=== PATIENT | female | born 1930 | race Caucasian/White ===

== ENCOUNTER 2016-09-29 12:42 | Inpatient (IN) | payer OTHER, MEDICAID ==
--- NOTE | 2016-09-29 12:52 | DR.GENAD ---
HPI - PCP Primary Care Physician: DR Светлана HERNANDEZ - HPI Comment HPI Comment: HISTORY HYPERTENSION. MEDICATION CHANGE RECENTLY. BP RUNNING HIGH. LEFT RIB PAIN. NO TRAUMA. WORSE TODAY. BRONCHITIS 9 DAYS AGO. STILL NOT RESOLVE. COUGHING, SLIGHTLY PRODUCTIVE. - Complaint/Symptoms Chief Complaint Doctors Comments: LEFT RIB PAIN, SOB AND HTN. Chief Complaint:: PT STATES " MY BP MEDS HAVE BEEN CHANGED AND I WANT TO SEE HOW IT IS, AND I WAS DX WITH BRONCHITIS AND I WANT TO SEE IF ITS BETTER AND I AM HURTING IN MY LEFT RIBS". - Nurses notes reviewed Nurses Notes Review: Yes - Source History Provided: Patient, Family Member - Mode of Arrival Mode of Arrival: Ambulatory - Timing Onset of Chief Complaint: 09/20/16 Came on: Suddenly - Duration Duration: Constant Duration: Days - Severity Severity: Moderate PMH - PMH Past Medical History: Yes Past Medical History: Dyslipidemia, GERD, Gout, Hypertension Past Surgical History: Yes Surgical History: Ortho Surgery - Family History History of Family Medical Conditions: Yes Family Medical History: Coronary Artery Disease, Hypertension - Social History Does patient currently use any type of tobacco product: No Have you used tobacco products in the last 12 months: No Type of Tobacco Use: None Does any household member use tobacco: No Alcohol Use: None Do you use any recreational Drugs:: No Lives With: Spouse Lives Where: Home - infectious screening In the last 2 months have you had wt loss of >10#?: NO Have you had fever, night sweats or hemotysis?: No Have you traveled outside the country in the last 6 months?: No Isolation: Standard ROS - Review of Systems Constitutional: Weakness, Fatigue. negative: Chills, Fever Eyes: No Symptoms Reported. negative: Eye Pain, Discharge ENTM: No Symptoms Reported. negative: Ear Pain, Nose Congestion, Throat Pain Respiratoy: Productive Cough, Short of Breath, Wheezing. negative: Hemoptysis Cardiovascular: Chest Pain (LEFT RIB PAIN) Gastrointestinal/Abdominal: Nausea. negative: Abdominal Pain, Diarrhea, Vomiting Genitourinary: negative: Hematuria Neurological: Headache, Weakness, Dizziness Musculoskeletal: Muscle Pain Integumentary: No Symptoms Reported Hematologic/Lymphatic: Easy Bruising Endocrine: No Symptoms Reported All Other Systems: Reviewed and Negative PE - Vital Signs Vitals: Temperature 97.0 F Pulse Rate [Left Radial] 75 Pulse Rate 83 Respiratory Rate 16 Blood Pressure [Right Arm] 182/82 Blood Pressure 174/79 O2 Sat by Pulse Oximetry 98 - General Limitations: No Limitations General Appearance: Alert - Head Head Exam: Normal Inspection - Eyes Eye exam: Normal Appearance - ENT ENT Exam: Normal External Ear Exam External Ear Exam: Normal External Inspection TM/Canal Exam: Bilateral Normal Nose Exam: Normal Nose Exam Mouth Exam: Normal Inspection Throat Exam: Normal Inspection - Neck Neck Exam: Trachea Midline. negative: Tenderness, Meningismus, Lymphadenopathy - Chest Chest Inspection: Symmetric Chest Wall Rise - Respiratory Respiratory Exam: Respiratory Distress. negative: Chest Wall Tenderness Respiratory Exam: Bilateral Rhonchi, Lower Rhonchi - Cardiovascular Cardiovascular Exam: Regular Rate, Normal Rhythm, Normal Heart Sounds - Abdominal Exam Abdominal Exam: Normal Bowel Sounds, Soft, Tenderness - Extremities Extremities Exam: Normal Inspection - Back Back Exam: Normal Inspection - Neurologic Neurological Exam: Alert, Oriented X3 - Psychiatric Psychiatric Exam: Normal Affect, Normal Mood - Skin Skin Exam: Normal Color MDM - Differential Diagnosis Differential Diagnosis: UNCONTROL HTN, CHF, COPD EXACERBATION,CHEST PAIN, BRONCHITIS Course - Treatment Treatment: SEE ORDERS - Consultation Consultation Comments: DISCUSS PATIENT WITH DR. HERNANDEZ. HE WILL ADMIT PATIENT. - Education/Counseling Education/Counseling: Patient, Education Educated On: Diagnosis ROR - Labs Reviewed Laboratory Results Reviewed?: Yes Result Diagrams: 10/02/16 04:15 10/02/16 04:15 Laboratory: WBC 7.9 X10^3/uL (3.6-10.0) 10/02/16 04:15 RBC 3.12 X10^6/uL (3.5-5.4) L 10/02/16 04:15 Hgb 10.4 g/dL (12.0-16.0) L 10/02/16 04:15 Hct 30.5 % (36.0-47.0) L 10/02/16 04:15 MCV 97.8 fL (80.0-100.0) 10/02/16 04:15 MCH 33.4 pg (27.0-34.0) 10/02/16 04:15 MCHC 34.2 g/dL (33.0-35.0) 10/02/16 04:15 RDW 14.0 % (11.6-16.5) 10/02/16 04:15 Plt Count 195 X10^3/uL (150.0-450.0) 10/02/16 04:15 MPV 8.1 fL (7.4-11.0) 10/02/16 04:15 Neut % 66.0 % (42.0-75.0) 10/02/16 04:15 Lymph % 21.7 % (21.0-51.0) 10/02/16 04:15 Walker % 10.2 % (0.0-13.0) 10/02/16 04:15 Eos % 1.5 % (0.9-2.9) 10/02/16 04:15 Baso % 0.6 % (0.2-1.0) 10/02/16 04:15 Neut # 5.2 x10^3/uL (2.2-4.8) H 10/02/16 04:15 Lymph # 1.7 X10^3/uL (1.3-2.9) 10/02/16 04:15 Walker # 0.8 x10^3/uL (0.3-0.8) 10/02/16 04:15 Eos # 0.1 x10^3/uL (0.0-0.2) 10/02/16 04:15 Baso # 0.0 X10^3/uL (0.0-0.1) 10/02/16 04:15 Absolute Nucleated RBC 0.0 /100WBC 10/02/16 04:15 Sodium 136 mmol/L (136-145) 10/02/16 04:15 Corrected Sodium TNP 10/02/16 04:15 Potassium 4.5 mmol/L (3.5-5.1) 10/02/16 04:15 Chloride 104 mmol/L (98-107) 10/02/16 04:15 Carbon Dioxide 23.9 mmol/L (21-32) 10/02/16 04:15 BUN 21 mg/dL (7-18) H 10/02/16 04:15 Creatinine 0.73 mg/dL (0.55-1.02) 10/02/16 04:15 Est GFR (MDRD) Af Amer > 60 (>60) 10/02/16 04:15 Est GFR (MDRD) Non-Af > 60 (>60) 10/02/16 04:15 Glucose 96 mg/dL (65-99) 10/02/16 04:15 Calcium 8.2 mg/dL (8.5-10.1) L 10/02/16 04:15 Corrected Calcium 9.4 mg/dL (8.5-10.1) 10/02/16 04:15 Total Bilirubin 0.30 mg/dL (0.2-1.0) 10/02/16 04:15 AST 12 Units/L (15-37) L 10/02/16 04:15 ALT 20 Units/L (12-78) 10/02/16 04:15 Alkaline Phosphatase 48 Units/L (46-116) 10/02/16 04:15 Creatine Kinase 18 Units/L (26-192) L 09/30/16 01:45 CK-MB (CK-2) < 1.0 ng/mL (0-4.0) 09/30/16 01:45 CK/CKMB % Calc 5.6 % (<4) 09/30/16 01:45 Troponin I 0.02 ng/mL (0-1.5) 09/30/16 01:45 Total Protein 4.9 g/dL (6.4-8.2) L 10/02/16 04:15 Albumin 2.5 g/dL (3.4-5.0) L 10/02/16 04:15 Globulin 2.4 g/dL (2.5-4.5) L 10/02/16 04:15 Albumin/Globulin Ratio 1.0 Ratio (1.1-2.1) L 10/02/16 04:15 Specimen Type Clean catch urine 09/29/16 14:33 Urine Color Yellow (YELLOW) 09/29/16 14:33 Urine Appearance Clear (CLEAR) 09/29/16 14:33 Urine pH 6.5 (5.0 - 8.0) 09/29/16 14:33 Ur Specific [place] 1.010 (1.000-1.030) 09/29/16 14:33 Urine Protein Negative (NEGATIVE) 09/29/16 14:33 Urine Glucose (UA) Negative (NEGATIVE) 09/29/16 14:33 Urine Ketones Negative (NEGATIVE) 09/29/16 14:33 Urine Occult Blood Negative (NEGATIVE) 09/29/16 14:33 Urine Nitrite Negative (NEGATIVE) 09/29/16 14:33 Urine Bilirubin Negative (NEGATIVE) 09/29/16 14:33 Urine Urobilinogen Normal (NORMAL) 09/29/16 14:33 Ur Leukocyte Esterase 1+ (NEGATIVE) 09/29/16 14:33 Urine RBC 0-1 /HPF (NEGATIVE) 09/29/16 14:33 Urine WBC 0-2 /HPF (NEGATIVE) 09/29/16 14:33 Ur Squamous Epith Cells Moderate /HPF (NEGATIVE) 09/29/16 14:33 Urine Bacteria Trace /HPF (NEGATIVE) 09/29/16 14:33 Ur Culture Indicated? No/not indicated 09/29/16 14:33 - XRAY XRAY Interpreted by: Radiologist XRAY Findings: REPORT DISCUSS WITH PATIENT. - EKG Rhythm: NSR (EKG NOTED.) - Diagnosis Discharge Problem: Hyponatremia, Hypertension, uncontrolled, Bronchitis Chest pain Qualifiers: Chest pain type: intercostal pain Qualified Code(s): R07.82 - Intercostal pain - Discharge Plan Disposition: ADMITTED INPATIENT Condition: Stable - Follow ups/Referrals - Instructions
[2016-09-29 13:37] LABS: BASOPHILS # (AUTO) 0.1 X10^3/uL (0.0-0.1); BASOPHILS % (AUTO) 0.6 % (0.2-1.0); EOSINOPHILS # (AUTO) 0.1 x10^3/uL (0.0-0.2); EOSINOPHILS % (AUTO) 0.6 % (0.9-2.9); HEMATOCRIT 38.7 % (36.0-47.0); HEMOGLOBIN 13.4 g/dL (12.0-16.0); LYMPHOCYTES % (AUTO) 15.4 % (21.0-51.0); MEAN CORPUSCULAR HEMOGLOBIN 32.9 pg (27.0-34.0); MEAN CORPUSCULAR HGB CONC 34.6 g/dL (33.0-35.0); MEAN PLATELET VOLUME 7.6 fL (7.4-11.0); MONOCYTES # (AUTO) 1.2 x10^3/uL (0.3-0.8); MONOCYTES % (AUTO) 9.5 % (0.0-13.0); NEUTROPHILS # (AUTO) 9.6 x10^3/uL (2.2-4.8); NEUTROPHILS % (AUTO) 73.9 % (42.0-75.0); PLATELET COUNT 303 X10^3/uL (150.0-450.0); RED BLOOD COUNT 4.07 X10^6/uL (3.5-5.4); RED CELL DISTRIBUTION WIDTH 13.5 % (11.6-16.5); WHITE BLOOD COUNT 12.9 X10^3/uL (3.6-10.0)
--- NOTE | 2016-09-29 13:45 | RAD ---
Chest, one view Indication: Chest pain, hypertension Comparison: 10/31/2009 Findings: Patient is slightly rotated to the left. There is mild cardiac silhouette enlargement. The re are mild interstitial changes of the lungs with hyperinflation, suggesting COPD. There is bluntin g of the left costophrenic angle. Rounded retrocardiac lucency is suggestive for a moderate hiatal h ernia, similar to prior. Impression: Cardiomegaly without evidence for CHF Left costophrenic sulcus blunting, suggesting pleural thickening or small effusion. Changes suggesting COPD. Hiatal hernia Reported By:
[2016-09-29 13:58] LABS: ALANINE AMINOTRANSFERASE 22 Units/L (12-78); ALBUMIN 3.3 g/dL (3.4-5.0); ALKALINE PHOSPHATASE 66 Units/L (46-116); ASPARTATE AMINO TRANSFERASE 18 Units/L (15-37); BLOOD UREA NITROGEN 27 mg/dL (7-18); CALCIUM 8.8 mg/dL (8.5-10.1); CARBON DIOXIDE 28.3 mmol/L (21-32); CHLORIDE 85 mmol/L (98-107); CKMB % 3.9 % (<4); COR CA(FOR HYPOALB) 9.4 mg/dL (8.5-10.1); COR NA(FOR HYPERGLY) 122 mmol/L (136-145); CREATINE KINASE 26 Units/L (26-192); CREATINE KINASE MB < 1.0 ng/mL (0-4.0); CREATININE 0.99 mg/dL (0.55-1.02); GLUCOSE 158 mg/dL (65-99); TROPONIN I < 0.02 ng/mL (0-1.5); eGFR BLACK RACES > 60 (>60); eGFR NON BLACK RACES 56 (>60)
[2016-09-29 14:08] LABS: SODIUM 121 mmol/L (136-145)
[2016-09-29] MEDS: NS 1000 ML 1,000 ML IV SCH (14:30)
[2016-09-29 14:52] LABS: BILIRUBIN,URINE NEGATIVE (NEGATIVE); BLOOD/HEMOGLOBIN,URINE NEGATIVE (NEGATIVE); GLUCOSE, URINE NEGATIVE (NEGATIVE); KETONES,URINE NEGATIVE (NEGATIVE); LEUKOCYTE ESTERASE ,URINE 1+ (NEGATIVE); NITRITES,URINE NEGATIVE (NEGATIVE); PH,URINE 6.5 (5.0 - 8.0); PROTEIN,URINE NEGATIVE (NEGATIVE); UROBILINOGEN,URINE NORMAL (NORMAL)
[2016-09-29 15:00] LABS: APPEARANCE,URINE CLEAR (CLEAR); BACTERIA,URINE TRACE /HPF (NEGATIVE); COLOR,URINE YELLOW (YELLOW); RBC,URINE 0-1 /HPF (NEGATIVE); SQUAMOUS EPITHELIAL CELL,UR MODERATE /HPF (NEGATIVE)
[2016-09-29 18:46] VITALS: BMI 21.5
[2016-09-29 20:47] LABS: CKMB % 3.5 % (<4); CREATINE KINASE 29 Units/L (26-192); TROPONIN I < 0.02 ng/mL (0-1.5)
[2016-09-29] MEDS ORDERED: TIMOLOL OP SCH (21:00)
[2016-09-29] MEDS: RESTORIL CAP 15 MG PO PRN (21:26)
[2016-09-29] MEDS: ULTRAM PO SCH (21:26)
[2016-09-29] MEDS: LIPITOR TAB 10 MG PO SCH (21:27)
[2016-09-29] MEDS: ZANTAC PO SCH (21:27)
[2016-09-29] MEDS: LOPRESSOR TAB 25 MG PO SCH (21:27)
[2016-09-29] MEDS: ZYLOPRIM PO SCH (21:27)
[2016-09-29] MEDS: PriLOSEC PO SCH (21:27)
[2016-09-29] MEDS: TIMOPTIC 0.5% EYE DROPS EACHEYE SCH (21:54)
[2016-09-30 02:26] LABS: CKMB % 5.6 % (<4); CREATINE KINASE 18 Units/L (26-192); CREATINE KINASE MB < 1.0 ng/mL (0-4.0); TROPONIN I 0.02 ng/mL (0-1.5)
[2016-09-30] MEDS: NS 1000 ML 1,000 ML IV SCH ×4 (05:36→23:52)
[2016-09-30] MEDS: ULTRAM PO SCH ×3 (05:36→21:39)
[2016-09-30 06:10] LABS: ALANINE AMINOTRANSFERASE 18 Units/L (12-78); ALBUMIN 2.4 g/dL (3.4-5.0); ALKALINE PHOSPHATASE 54 Units/L (46-116); ASPARTATE AMINO TRANSFERASE 14 Units/L (15-37); BLOOD UREA NITROGEN 23 mg/dL (7-18); CALCIUM 8.1 mg/dL (8.5-10.1); CARBON DIOXIDE 27.2 mmol/L (21-32); CHLORIDE 91 mmol/L (98-107); COR CA(FOR HYPOALB) 9.4 mg/dL (8.5-10.1); CREATININE 0.85 mg/dL (0.55-1.02); GLUCOSE 90 mg/dL (65-99); SODIUM 127 mmol/L (136-145); TOTAL PROTEIN 5.3 g/dL (6.4-8.2); eGFR BLACK RACES > 60 (>60); eGFR NON BLACK RACES > 60 (>60)
[2016-09-30 06:26] LABS: BASOPHILS % (AUTO) 0.3 % (0.2-1.0); EOSINOPHILS # (AUTO) 0.1 x10^3/uL (0.0-0.2); EOSINOPHILS % (AUTO) 1.1 % (0.9-2.9); HEMATOCRIT 32.7 % (36.0-47.0); HEMOGLOBIN 11.5 g/dL (12.0-16.0); LYMPHOCYTES # (AUTO) 2.2 X10^3/uL (1.3-2.9); LYMPHOCYTES % (AUTO) 22.8 % (21.0-51.0); MEAN CORPUSCULAR HEMOGLOBIN 33.6 pg (27.0-34.0); MEAN CORPUSCULAR HGB CONC 35.2 g/dL (33.0-35.0); MEAN CORPUSCULAR VOLUME 95.4 fL (80.0-100.0); MEAN PLATELET VOLUME 7.9 fL (7.4-11.0); MONOCYTES # (AUTO) 1.3 x10^3/uL (0.3-0.8); MONOCYTES % (AUTO) 13.3 % (0.0-13.0); NEUTROPHILS % (AUTO) 62.5 % (42.0-75.0); PLATELET COUNT 224 X10^3/uL (150.0-450.0); RED BLOOD COUNT 3.43 X10^6/uL (3.5-5.4); RED CELL DISTRIBUTION WIDTH 13.2 % (11.6-16.5); WHITE BLOOD COUNT 9.6 X10^3/uL (3.6-10.0)
[2016-09-30] MEDS ORDERED: ZESTRIL TAB 20 MG ONE (08:29)
[2016-09-30] MEDS ORDERED: LEXAPRO ONE (08:29)
[2016-09-30] MEDS ORDERED: LASIX PO SCH (09:00)
[2016-09-30] MEDS ORDERED: HYDROCHLOROTHIAZIDE 12.5 MG CAP PO SCH (09:00)
[2016-09-30] MEDS: ZESTRIL TAB 20 MG PO SCH (09:26)
[2016-09-30] MEDS: LEXAPRO PO SCH (09:26)
[2016-09-30] MEDS: ZANTAC PO SCH ×2 (09:27→21:39)
[2016-09-30] MEDS: LOPRESSOR TAB 25 MG PO SCH ×2 (09:27→21:39)
[2016-09-30] MEDS: ZYLOPRIM PO SCH ×2 (09:27→21:39)
[2016-09-30] MEDS: K-DUR TAB 20 MEQ PO SCH (09:27)
[2016-09-30] MEDS: ASPIRIN EC 81 MG PO SCH (09:27)
[2016-09-30] MEDS: TIMOPTIC 0.5% EYE DROPS EACHEYE SCH ×2 (09:30→21:42)
--- NOTE | 2016-09-30 11:27 | PCM.PROG ---
Progress Note - Progress Note for Day of Date: 09/30/16 - Subjective Subjective: PATIENT IS LYING IN BED AWAKE DURING MORNING ROUNDS. SHE IS ALERT AND ORIENTED. SON IS AT BEDSIDE. PATIENT REPORTS WEAKNESS THIS MORNING AND FEELING TIRED. PATIENT'S BLOOD PRESSURE AT MIDNIGHT WAS 81/47, BUT IS 116/58 THIS MORNING. PULSE IS 63. CBC IS WNL EXCEPT HGB 11.5/32.7, CMP WNL EXCEPT NA 127, CHLORIDE 91, BUN 23, TOTAL PROTEIN 5.3, ALBUMIN 2.5. CARDIAC ENZYMES REPORTS CREATINE KINASE 18, OTHERWISE WNL. EKG SHOWS NSR. WE WILL HOLD HCTZ AND LASIX AND CONTINUE OTHER HOME MEDICATIONS. - Past Medical Family Social History Past Med/Fam/Surg Hx: No changes since H&P Allergies: Allergies Codeine Allergy (Unknown, Verified 09/29/16 12:43) Promethazine [From Phenergan] Allergy (Unknown, Verified 09/29/16 12:43) - Review of Systems ROS: No change since H&P - Vital Signs and I&O's Vital Signs: Temperature 97.5 F Pulse Rate [Right Brachial] 63 Respiratory Rate 18 Blood Pressure [Left Arm] 116/58 Blood Pressure [Right Arm] 178/77 O2 Sat by Pulse Oximetry 98 Intake and Output: Intake & Output 09/27/16 09/28/16 09/29/16 09/30/16 11:59 11:59 11:59 11:59 Intake Total 899 Balance 899 - Physical Exam Oriented: Normal, Time, Person, Place Eyes: Normal. negative: Blurred Vision, Diplopia, Discharge, Pain, Redness, Photophobia Ear: Normal. negative: Swelling, Ecchymosis, Hemotypanum, Abrasion, Laceration Nose: Normal. negative: Injected, Discharge, Blood Throat: negative: Tonsillar Hypertrophy, Red, Exudate Respiratory: Normal. negative: Wheezes, Rales, Rhonchi Cardiovascular: Normal. negative: Murmur, Edema : Normal Auscultation: Bowel Sounds: Normal. negative: Bruit Palpation: Normal. negative: Spleen Enlarged, Liver Enlarged, Mass Pulsatile Tenderness: Normal. negative: Rebound, Guarding, Rigidity Skin: Decreased Turgur. negative: Diaphoresis, Wound, Bruising, Ecchymosis Musculoskeletal: Instability Psychiatric: Normal Mood Description: Calm Affect: Normal Speech Pattern: Clear, Appropriate - Laboratory and Diagnostics Result Diagrams: 09/30/16 04:05 09/30/16 04:05 Labs: Laboratory WBC 9.6 X10^3/uL (3.6-10.0) 09/30/16 04:05 RBC 3.43 X10^6/uL (3.5-5.4) L 09/30/16 04:05 Hgb 11.5 g/dL (12.0-16.0) L 09/30/16 04:05 Hct 32.7 % (36.0-47.0) L 09/30/16 04:05 MCV 95.4 fL (80.0-100.0) 09/30/16 04:05 MCH 33.6 pg (27.0-34.0) 09/30/16 04:05 MCHC 35.2 g/dL (33.0-35.0) H 09/30/16 04:05 RDW 13.2 % (11.6-16.5) 09/30/16 04:05 Plt Count 224 X10^3/uL (150.0-450.0) 09/30/16 04:05 MPV 7.9 fL (7.4-11.0) 09/30/16 04:05 Neut % 62.5 % (42.0-75.0) 09/30/16 04:05 Lymph % 22.8 % (21.0-51.0) 09/30/16 04:05 [place] % 13.3 % (0.0-13.0) H 09/30/16 04:05 Eos % 1.1 % (0.9-2.9) 09/30/16 04:05 Baso % 0.3 % (0.2-1.0) 09/30/16 04:05 Neut # 6.0 x10^3/uL (2.2-4.8) H 09/30/16 04:05 Lymph # 2.2 X10^3/uL (1.3-2.9) 09/30/16 04:05 [place] # 1.3 x10^3/uL (0.3-0.8) H 09/30/16 04:05 Eos # 0.1 x10^3/uL (0.0-0.2) 09/30/16 04:05 Baso # 0.0 X10^3/uL (0.0-0.1) 09/30/16 04:05 Absolute Nucleated RBC 0.0 /100WBC 09/30/16 04:05 Sodium 127 mmol/L (136-145) L 09/30/16 04:05 Corrected Sodium TNP 09/30/16 04:05 Potassium 3.7 mmol/L (3.5-5.1) 09/30/16 04:05 Chloride 91 mmol/L (98-107) L 09/30/16 04:05 Carbon Dioxide 27.2 mmol/L (21-32) 09/30/16 04:05 BUN 23 mg/dL (7-18) H 09/30/16 04:05 Creatinine 0.85 mg/dL (0.55-1.02) 09/30/16 04:05 Est GFR (MDRD) Af Amer > 60 (>60) 09/30/16 04:05 Est GFR (MDRD) Non-Af > 60 (>60) 09/30/16 04:05 Glucose 90 mg/dL (65-99) 09/30/16 04:05 Calcium 8.1 mg/dL (8.5-10.1) L 09/30/16 04:05 Corrected Calcium 9.4 mg/dL (8.5-10.1) 09/30/16 04:05 Total Bilirubin 0.60 mg/dL (0.2-1.0) 09/30/16 04:05 AST 14 Units/L (15-37) L 09/30/16 04:05 ALT 18 Units/L (12-78) 09/30/16 04:05 Alkaline Phosphatase 54 Units/L (46-116) 09/30/16 04:05 Creatine Kinase 18 Units/L (26-192) L 09/30/16 01:45 CK-MB (CK-2) < 1.0 ng/mL (0-4.0) 09/30/16 01:45 CK/CKMB % Calc 5.6 % (<4) 09/30/16 01:45 Troponin I 0.02 ng/mL (0-1.5) 09/30/16 01:45 Total Protein 5.3 g/dL (6.4-8.2) L 09/30/16 04:05 Albumin 2.4 g/dL (3.4-5.0) L 09/30/16 04:05 Globulin 2.9 g/dL (2.5-4.5) 09/30/16 04:05 Albumin/Globulin Ratio 0.8 Ratio (1.1-2.1) L 09/30/16 04:05 Specimen Type Clean catch urine 09/29/16 14:33 Urine Color Yellow (YELLOW) 09/29/16 14:33 Urine Appearance Clear (CLEAR) 09/29/16 14:33 Urine pH 6.5 (5.0 - 8.0) 09/29/16 14:33 Ur Specific [place] 1.010 (1.000-1.030) 09/29/16 14:33 Urine Protein Negative (NEGATIVE) 09/29/16 14:33 Urine Glucose (UA) Negative (NEGATIVE) 09/29/16 14:33 Urine Ketones Negative (NEGATIVE) 09/29/16 14:33 Urine Occult Blood Negative (NEGATIVE) 09/29/16 14:33 Urine Nitrite Negative (NEGATIVE) 09/29/16 14:33 Urine Bilirubin Negative (NEGATIVE) 09/29/16 14:33 Urine Urobilinogen Normal (NORMAL) 09/29/16 14:33 Ur Leukocyte Esterase 1+ (NEGATIVE) 09/29/16 14:33 Urine RBC 0-1 /HPF (NEGATIVE) 09/29/16 14:33 Urine WBC 0-2 /HPF (NEGATIVE) 09/29/16 14:33 Ur Squamous Epith Cells Moderate /HPF (NEGATIVE) 09/29/16 14:33 Urine Bacteria Trace /HPF (NEGATIVE) 09/29/16 14:33 Ur Culture Indicated? No/not indicated 09/29/16 14:33 - Plan (1) Hyponatremia Status: Acute Plan: CONTINUE IVF, CONTINUE TO MONITOR LABS (2) Hypertension, uncontrolled Status: Acute Plan: CONTINUE IVF, CONTINUE LISINOPRIL AND LOPRESSOR, MONITOR BLOOD PRESSURE, CONTINUE TO MONITOR LABS (3) HTN (hypertension) Status: Chronic Qualifiers: Hypertension type: essential hypertension Qualified Code(s): I10 - Essential (primary) hypertension (4) Hyperlipidemia Status: Chronic Qualifiers: Hyperlipidemia type: mixed hyperlipidemia Qualified Code(s): E78.2 - Mixed hyperlipidemia (5) GERD (gastroesophageal reflux disease) Status: Chronic Qualifiers: Esophagitis presence: esophagitis presence not specified Qualified Code(s) : K21.9 - Gastro-esophageal reflux disease without esophagitis (6) Osteoporosis Status: Chronic Qualifiers: Osteoporosis type: age-related Presence of current pathological fracture: without current pathological fracture Encounter type: E Fracture healing: F Qualified Code(s): M81.0 - Age-related osteoporosis without current pathological fracture (7) Anxiety and depression Status: Chronic
--- NOTE | 2016-09-30 14:58 | DR.H&P ---
H&P - History & Physical for Day of: H&P Date: 09/29/16 - Chief Complaint Chief Complaint: ELEVATED BLOOD PRESSURE, GENERALIZED WEAKNESS, HEADACHE - Allergies Allergies/Adverse Reactions: Allergies Allergy/AdvReac Type Severity Reaction Status Date / Time Codeine Allergy Unknown Verified 09/29/16 12:43 Promethazine [From Phenergan] Allergy Unknown Verified 09/29/16 12:43 - History of Present Illness History of Present Illness: THIS IS AN 86 YEAR OLD FEMALE, WHO IS A PATIENT OF OURS. SHE PRESENTS TO THE EMERGENCY ROOM WITH COMPLAINTS OF ELEVATED BLOOD PRESSURE, GENERALIZED WEAKNESS, AND HEADACHE. SHE REPORTS BLOOD PRESSURE MEDICATIONS HAVE RECENTLY BEEN CHANGED AT OUR OFFICE. SHE WAS NOTED WITH HYPERTENSION IN OUR OFFICE AND WAS STARTED ON HCTZ IN ADDITION TO LISINOPRIL AND LOPRESSOR. PATIENT HAS ALSO RECENTLY BEEN TREATED FOR BRONCHITIS IN OUR OFFICE. ON AUSCULTATION, LUNGS ARE DIMINISHED, BUT CLEAR. SHE REPORTS GENERALIZED FATIGUE AND MALAISE. BLOOD PRESSURE IS 182/82 ON ARRIVAL, PULSE 75. LABS AND CHEST XRAY OBTAINED ON ARRIVAL. CBC WNL EXCEPT: WBC 12.9. CMP WNL EXCEPT: SODIUM 121, CHL 85, BUN 27, GFR 56, GLUCOSE 158, ALBUMIN 3.3. CARDIAC ENZYMES WNL. EKG: SINUS RHYTHM, RATE 74. CHEST XRAY REPORTS CARDIOMEGALY WITHOUT CHF; LEFT COTOPHRENIC SULCUS BLUNTING; COPD; HIATAL HERNIA. WE WILL ADMIT PATIENT FOR HYPONATREMIA, START IV FLUIDS, START HOME MEDICATIONS, AND CONTINUE TO MONITOR LABS AND VITAL SIGNS. - Past Medical History Past Medical History: Anxiety, Arthritis, Depression, Dyslipidemia, GERD, Gout, Hypertension Additional Medical History: Bacterial Infection Right Eye, Bronchitis, Osteoporosis, Back Pain, Skin Cancer on Face/Melanoma - Past Surgical History Surgical History: Ortho Surgery Additional Surgical History: Removal Of Skin Cancer, Fracture of Right Arm Twice - Family History Family Medical History: Coronary Artery Disease, Hypertension - Social History Does patient currently use any type of tobacco product: No Have you used tobacco products in the last 12 months: No Type of Tobacco Use: None Does any household member use tobacco: No Alcohol Use: None Drug Use: None - Medications Home Medications: Alendronate Sodium [Fosamax 70 mg] 70 mg PO Q7D 09/02/12 Allopurinol 100 mg PO BID 09/02/12 Atorvastatin Calcium [LIPITOR Tab 10 mg *] 10 mg PO HS 09/02/12 Calcium W/ Vitamins D & K [Calcium + D 500-1000-40 mg-Unt-Mcg] 2 tab PO DAILY 09/02/12 Furosemide [LASIX TAB 40 MG *] 40 mg PO DAILY 09/02/12 Iron Combinations [Iron] 65 mg PO DAILY 09/02/12 Potassium Chloride Microencaps [Klor-Con M20 (20 mEQ)] 20 meq PO DAILY Ranitidine HCl 150 mg PO BID 09/02/12 Timolol [Betimol (ophtl) soln 0.5 %] 0.5 % OP BID 09/02/12 Metoprolol Tartrate [LOPRESSOR 25 MG *] 25 mg PO BID 03/27/14 Aspirin [Aspirin Adult Low Dose] 81 mg PO DAILY 09/29/16 Escitalopram Oxalate [Lexapro 5 mg] 5 mg PO DAILY 09/29/16 Lisinopril & Hydrochlorothiazi [Lisinopril/Hydrochlorothi 20-12.5 mg] 1 tab PO DAILY 09/29/16 Omeprazole [PRILOSEC 20 MG *] 20 mg PO HS 09/29/16 Tramadol HCl [ULTRAM 50 MG *] 1 tab PO TID 09/29/16 - Review of Systems Constitutional: Weakness, Malaise, Other (Headache). denies: Fever Eyes: No Symptoms Reported. denies: Pain, Vision Change, Conjunctivae Inflammation, Eyelid Inflammation, Redness ENT: No Symptoms Reported. denies: Ear Pain, Ear Discharge, Nose Pain, Nose Discharge, Nose Congestion, Mouth Pain, Mouth Swelling, Throat Pain, Throat Swelling Respiratory: No Symptoms Reported. denies: Cough, Shortness of Breath, Hemoptysis, SOB with Excertion, Pleuritic Pain, Sputum, Wheezing Cardiovascular: Light Headedness. denies: Chest Pain, Palpitations, Orthopnea, Paroxysmal Noc. Dyspnea Gastrointestinal: Nausea. denies: Vomiting, Abdominal Pain, Diarrhea, Constipation, Melena, Hematochezia Genitourinary: No Symptoms Reported. denies: Dysuria, Frequency, Incontinence, Hematuria, Retention Musculoskeletal: No Symptoms Reported. denies: Shoulder Pain, Arm Pain, Back Pain, Hand Pain, Leg Pain, Foot Pain, Neck Pain Skin: No Symptoms Reported. denies: Rash, Lesions, Jaundice, Bruising, Wound, Ecchymosis Neurological: Weakness - Physical Exam Vital Signs: Temperature 96.3 F Pulse Rate [Right Brachial] 66 Respiratory Rate 18 Blood Pressure [Left Arm] 116/58 Blood Pressure [Right Arm] 84/53 O2 Sat by Pulse Oximetry 97 Oriented: Normal, Time, Person, Place Eyes: Normal. negative: Blurred Vision, Diplopia, Discharge, Pain, Redness, Photophobia Ear: Normal. negative: Swelling, Ecchymosis, Hemotypanum, Abrasion, Laceration Nose: Normal. negative: Injected, Discharge, Blood Throat: Dry. negative: Tonsillar Hypertrophy, Exudate Respiratory: Clear Throughout, Diminished Throughout Cardiovascular: Normal. negative: Murmur, Edema : Normal. negative: Dysuria, Hematuria, Frequency, Discharge, Bleeding, Auscultation: Bowel Sounds: Decreased. negative: Bruit Palpation: Normal. negative: Spleen Enlarged, Liver Enlarged, Mass Pulsatile Tenderness: Normal. negative: Rebound, Guarding, Rigidity Skin: Decreased Turgur. negative: Diaphoresis, Wound, Bruising, Ecchymosis Musculoskeletal: Instability Psychiatric: Normal Mood Description: Calm, Appropriate Affect: Normal Speech Pattern: Clear, Appropriate - Assessment/Plan (1) Hyponatremia Status: Acute Plan: ADMIT PATIENT, START IV FLUIDS, CONTINUE TO MONITOR VITAL SIGNS, MONITOR LABS. (2) Hypertension, uncontrolled Status: Acute Plan: START HOME MEDICATIONS, MONITOR BLOOD PRESSURE. (3) HTN (hypertension) Qualifiers: Hypertension type: essential hypertension Qualified Code(s): I10 - Essential (primary) hypertension Status: Chronic (4) Hyperlipidemia Qualifiers: Hyperlipidemia type: mixed hyperlipidemia Qualified Code(s): E78.2 - Mixed hyperlipidemia Status: Chronic (5) GERD (gastroesophageal reflux disease) Qualifiers: Esophagitis presence: esophagitis presence not specified Qualified Code(s) : K21.9 - Gastro-esophageal reflux disease without esophagitis Status: Chronic (6) Osteoporosis Qualifiers: Osteoporosis type: age-related Presence of current pathological fracture: without current pathological fracture Encounter type: E Fracture healing: F Qualified Code(s): M81.0 - Age-related osteoporosis without current pathological fracture Status: Chronic (7) Anxiety and depression Status: Chronic
[2016-09-30] MEDS: PriLOSEC PO SCH (21:39)
[2016-09-30] MEDS: LIPITOR TAB 10 MG PO SCH (21:39)
[2016-09-30] MEDS: RESTORIL CAP 15 MG PO PRN (21:42)
[2016-10-01] MEDS: ULTRAM PO SCH ×3 (06:15→21:49)
[2016-10-01 07:01] LABS: ALANINE AMINOTRANSFERASE 16 Units/L (12-78); ALBUMIN 2.3 g/dL (3.4-5.0); ALKALINE PHOSPHATASE 58 Units/L (46-116); ASPARTATE AMINO TRANSFERASE 13 Units/L (15-37); BLOOD UREA NITROGEN 23 mg/dL (7-18); CALCIUM 8.1 mg/dL (8.5-10.1); CARBON DIOXIDE 27.3 mmol/L (21-32); CHLORIDE 97 mmol/L (98-107); COR CA(FOR HYPOALB) 9.5 mg/dL (8.5-10.1); CREATININE 0.75 mg/dL (0.55-1.02); GLUCOSE 93 mg/dL (65-99); SODIUM 132 mmol/L (136-145); TOTAL PROTEIN 5.2 g/dL (6.4-8.2); eGFR BLACK RACES > 60 (>60); eGFR NON BLACK RACES > 60 (>60)
[2016-10-01 07:02] LABS: BASOPHILS % (AUTO) 0.5 % (0.2-1.0); EOSINOPHILS # (AUTO) 0.1 x10^3/uL (0.0-0.2); EOSINOPHILS % (AUTO) 1.2 % (0.9-2.9); HEMATOCRIT 34.1 % (36.0-47.0); HEMOGLOBIN 11.7 g/dL (12.0-16.0); LYMPHOCYTES # (AUTO) 1.7 X10^3/uL (1.3-2.9); LYMPHOCYTES % (AUTO) 19.1 % (21.0-51.0); MEAN CORPUSCULAR HGB CONC 34.2 g/dL (33.0-35.0); MEAN CORPUSCULAR VOLUME 96.4 fL (80.0-100.0); MONOCYTES # (AUTO) 1.1 x10^3/uL (0.3-0.8); MONOCYTES % (AUTO) 12.9 % (0.0-13.0); NEUTROPHILS # (AUTO) 5.8 x10^3/uL (2.2-4.8); NEUTROPHILS % (AUTO) 66.3 % (42.0-75.0); PLATELET COUNT 228 X10^3/uL (150.0-450.0); RED BLOOD COUNT 3.54 X10^6/uL (3.5-5.4); RED CELL DISTRIBUTION WIDTH 13.6 % (11.6-16.5); WHITE BLOOD COUNT 8.7 X10^3/uL (3.6-10.0)
[2016-10-01] MEDS ORDERED: LEXAPRO ONE (09:10)
[2016-10-01] MEDS ORDERED: ZESTRIL TAB 20 MG ONE (09:11)
[2016-10-01] MEDS: ZANTAC PO SCH ×2 (09:32→21:50)
[2016-10-01] MEDS: LEXAPRO PO SCH (09:32)
[2016-10-01] MEDS: K-DUR TAB 20 MEQ PO SCH (09:32)
[2016-10-01] MEDS: ASPIRIN EC 81 MG PO SCH (09:32)
[2016-10-01] MEDS: ZESTRIL TAB 20 MG PO SCH (09:32)
[2016-10-01] MEDS: ZYLOPRIM PO SCH ×2 (09:32→21:50)
[2016-10-01] MEDS: LOPRESSOR TAB 25 MG PO SCH ×2 (09:32→21:50)
[2016-10-01] MEDS: TIMOPTIC 0.5% EYE DROPS EACHEYE SCH ×2 (09:37→21:51)
[2016-10-01] MEDS: ALBUMIN HUMAN 25%- 100ML 100 ML IV SCH (12:06)
[2016-10-01] MEDS: NS 1000 ML 1,000 ML IV SCH ×5 (12:07→23:21)
--- NOTE | 2016-10-01 17:32 | PCM.PROG ---
Progress Note - Progress Note for Day of Date: 10/01/16 - Subjective Subjective: PATIENT IS ALERT AND ORIENTED UPON ROUNDS. PATIENT CONTINUES TO REPORT WEAKNESS AND FATIGUE. BLOOD PRESSURE IS 114/60. PULSE IS 72. CBC WNL EXCEPT HGB 11.7/34.1. CMP WNL EXCEPT NA 132, CHLORIDE 97, BUN 23, CALCIUM 8.1, TOTAL PROTEIN 5.2, ALBUMIN 2.3. WE WILL CONTINUE TO HOLD HCTZ AND LASIX AND CONTINUE TO MONITOR. - Past Medical Family Social History Past Med/Fam/Surg Hx: No changes since H&P Allergies: Allergies Codeine Allergy (Unknown, Verified 09/29/16 12:43) Promethazine [From Phenergan] Allergy (Unknown, Verified 09/29/16 12:43) - Review of Systems ROS: No change since H&P - Vital Signs and I&O's Vital Signs: Temperature 97.7 F Pulse Rate [Right Brachial] 72 Pulse Rate [Left Radial] 61 Respiratory Rate 18 Blood Pressure [Left Arm] 116/58 Blood Pressure [Right Arm] 114/60 O2 Sat by Pulse Oximetry 93 Intake and Output: Intake & Output 09/29/16 09/30/16 10/01/16 10/02/16 11:59 11:59 11:59 11:59 Intake Total 899 1341 1000 Output Total 850 700 Balance 899 491 300 - Physical Exam Oriented: Normal, Time, Person, Place Eyes: Normal. negative: Blurred Vision, Diplopia, Discharge, Pain, Redness, Photophobia Ear: Normal. negative: Swelling, Ecchymosis, Hemotypanum, Abrasion, Laceration Nose: Normal. negative: Injected, Discharge, Blood Throat: Dry. negative: Tonsillar Hypertrophy, Exudate Respiratory: Normal. negative: Wheezes, Rales, Rhonchi Cardiovascular: Normal. negative: Murmur, Edema : Normal. negative: Dysuria, Hematuria, Frequency, Discharge, Bleeding, Auscultation: Bowel Sounds: Decreased. negative: Bruit Palpation: Normal Tenderness: Normal. negative: Rebound, Guarding, Rigidity Skin: Decreased Turgur. negative: Diaphoresis, Wound, Bruising, Ecchymosis Musculoskeletal: Instability Psychiatric: Normal Mood Description: Calm, Appropriate Affect: Normal Speech Pattern: Clear, Appropriate - Laboratory and Diagnostics Result Diagrams: 10/01/16 05:10 10/01/16 05:10 Labs: Laboratory WBC 8.7 X10^3/uL (3.6-10.0) 10/01/16 05:10 RBC 3.54 X10^6/uL (3.5-5.4) 10/01/16 05:10 Hgb 11.7 g/dL (12.0-16.0) L 10/01/16 05:10 Hct 34.1 % (36.0-47.0) L 10/01/16 05:10 MCV 96.4 fL (80.0-100.0) 10/01/16 05:10 MCH 33.0 pg (27.0-34.0) 10/01/16 05:10 MCHC 34.2 g/dL (33.0-35.0) 10/01/16 05:10 RDW 13.6 % (11.6-16.5) 10/01/16 05:10 Plt Count 228 X10^3/uL (150.0-450.0) 10/01/16 05:10 MPV 8.0 fL (7.4-11.0) 10/01/16 05:10 Neut % 66.3 % (42.0-75.0) 10/01/16 05:10 Lymph % 19.1 % (21.0-51.0) L 10/01/16 05:10 [place] % 12.9 % (0.0-13.0) 10/01/16 05:10 Eos % 1.2 % (0.9-2.9) 10/01/16 05:10 Baso % 0.5 % (0.2-1.0) 10/01/16 05:10 Neut # 5.8 x10^3/uL (2.2-4.8) H 10/01/16 05:10 Lymph # 1.7 X10^3/uL (1.3-2.9) 10/01/16 05:10 [place] # 1.1 x10^3/uL (0.3-0.8) H 10/01/16 05:10 Eos # 0.1 x10^3/uL (0.0-0.2) 10/01/16 05:10 Baso # 0.0 X10^3/uL (0.0-0.1) 10/01/16 05:10 Absolute Nucleated RBC 0.0 /100WBC 10/01/16 05:10 Sodium 132 mmol/L (136-145) L 10/01/16 05:10 Corrected Sodium TNP 10/01/16 05:10 Potassium 4.5 mmol/L (3.5-5.1) 10/01/16 05:10 Chloride 97 mmol/L (98-107) L 10/01/16 05:10 Carbon Dioxide 27.3 mmol/L (21-32) 10/01/16 05:10 BUN 23 mg/dL (7-18) H 10/01/16 05:10 Creatinine 0.75 mg/dL (0.55-1.02) 10/01/16 05:10 Est GFR (MDRD) Af Amer > 60 (>60) 10/01/16 05:10 Est GFR (MDRD) Non-Af > 60 (>60) 10/01/16 05:10 Glucose 93 mg/dL (65-99) 10/01/16 05:10 Calcium 8.1 mg/dL (8.5-10.1) L 10/01/16 05:10 Corrected Calcium 9.5 mg/dL (8.5-10.1) 10/01/16 05:10 Total Bilirubin 0.30 mg/dL (0.2-1.0) 10/01/16 05:10 AST 13 Units/L (15-37) L 10/01/16 05:10 ALT 16 Units/L (12-78) 10/01/16 05:10 Alkaline Phosphatase 58 Units/L (46-116) 10/01/16 05:10 Creatine Kinase 18 Units/L (26-192) L 09/30/16 01:45 CK-MB (CK-2) < 1.0 ng/mL (0-4.0) 09/30/16 01:45 CK/CKMB % Calc 5.6 % (<4) 09/30/16 01:45 Troponin I 0.02 ng/mL (0-1.5) 09/30/16 01:45 Total Protein 5.2 g/dL (6.4-8.2) L 10/01/16 05:10 Albumin 2.3 g/dL (3.4-5.0) L 10/01/16 05:10 Globulin 2.9 g/dL (2.5-4.5) 10/01/16 05:10 Albumin/Globulin Ratio 0.8 Ratio (1.1-2.1) L 10/01/16 05:10 Specimen Type Clean catch urine 09/29/16 14:33 Urine Color Yellow (YELLOW) 09/29/16 14:33 Urine Appearance Clear (CLEAR) 09/29/16 14:33 Urine pH 6.5 (5.0 - 8.0) 09/29/16 14:33 Ur Specific [place] 1.010 (1.000-1.030) 09/29/16 14:33 Urine Protein Negative (NEGATIVE) 09/29/16 14:33 Urine Glucose (UA) Negative (NEGATIVE) 09/29/16 14:33 Urine Ketones Negative (NEGATIVE) 09/29/16 14:33 Urine Occult Blood Negative (NEGATIVE) 09/29/16 14:33 Urine Nitrite Negative (NEGATIVE) 09/29/16 14:33 Urine Bilirubin Negative (NEGATIVE) 09/29/16 14:33 Urine Urobilinogen Normal (NORMAL) 09/29/16 14:33 Ur Leukocyte Esterase 1+ (NEGATIVE) 09/29/16 14:33 Urine RBC 0-1 /HPF (NEGATIVE) 09/29/16 14:33 Urine WBC 0-2 /HPF (NEGATIVE) 09/29/16 14:33 Ur Squamous Epith Cells Moderate /HPF (NEGATIVE) 09/29/16 14:33 Urine Bacteria Trace /HPF (NEGATIVE) 09/29/16 14:33 Ur Culture Indicated? No/not indicated 09/29/16 14:33 - Plan (1) Hyponatremia Status: Acute Plan: CONTINUE IV FLUIDS, CONTINUE TO MONITOR VITAL SIGNS, MONITOR LABS. (2) Hypertension, uncontrolled Status: Acute Plan: CONTINUE LISINOPRIL, LOPRESSOR, MONITOR BLOOD PRESSURE. (3) HTN (hypertension) Status: Chronic Qualifiers: Hypertension type: essential hypertension Qualified Code(s): I10 - Essential (primary) hypertension (4) Hyperlipidemia Status: Chronic Qualifiers: Hyperlipidemia type: mixed hyperlipidemia Qualified Code(s): E78.2 - Mixed hyperlipidemia (5) GERD (gastroesophageal reflux disease) Status: Chronic Qualifiers: Esophagitis presence: esophagitis presence not specified Qualified Code(s) : K21.9 - Gastro-esophageal reflux disease without esophagitis (6) Osteoporosis Status: Chronic Qualifiers: Osteoporosis type: age-related Presence of current pathological fracture: without current pathological fracture Encounter type: E Fracture healing: F Qualified Code(s): M81.0 - Age-related osteoporosis without current pathological fracture (7) Anxiety and depression Status: Chronic
[2016-10-01] MEDS: PriLOSEC PO SCH (21:50)
[2016-10-01] MEDS: LIPITOR TAB 10 MG PO SCH (21:50)
[2016-10-01] MEDS: RESTORIL CAP 15 MG PO PRN (21:50)
[2016-10-02] MEDS: NS 1000 ML 1,000 ML IV SCH ×5 (05:27→23:52)
[2016-10-02] MEDS: ULTRAM PO SCH ×3 (05:30→20:59)
[2016-10-02 06:04] LABS: BASOPHILS % (AUTO) 0.6 % (0.2-1.0); EOSINOPHILS # (AUTO) 0.1 x10^3/uL (0.0-0.2); EOSINOPHILS % (AUTO) 1.5 % (0.9-2.9); HEMATOCRIT 30.5 % (36.0-47.0); HEMOGLOBIN 10.4 g/dL (12.0-16.0); LYMPHOCYTES # (AUTO) 1.7 X10^3/uL (1.3-2.9); LYMPHOCYTES % (AUTO) 21.7 % (21.0-51.0); MEAN CORPUSCULAR HEMOGLOBIN 33.4 pg (27.0-34.0); MEAN CORPUSCULAR HGB CONC 34.2 g/dL (33.0-35.0); MEAN CORPUSCULAR VOLUME 97.8 fL (80.0-100.0); MEAN PLATELET VOLUME 8.1 fL (7.4-11.0); MONOCYTES # (AUTO) 0.8 x10^3/uL (0.3-0.8); MONOCYTES % (AUTO) 10.2 % (0.0-13.0); NEUTROPHILS # (AUTO) 5.2 x10^3/uL (2.2-4.8); PLATELET COUNT 195 X10^3/uL (150.0-450.0); RED BLOOD COUNT 3.12 X10^6/uL (3.5-5.4); WHITE BLOOD COUNT 7.9 X10^3/uL (3.6-10.0)
[2016-10-02 07:19] LABS: ALANINE AMINOTRANSFERASE 20 Units/L (12-78); ALBUMIN 2.5 g/dL (3.4-5.0); ALKALINE PHOSPHATASE 48 Units/L (46-116); ASPARTATE AMINO TRANSFERASE 12 Units/L (15-37); BLOOD UREA NITROGEN 21 mg/dL (7-18); CALCIUM 8.2 mg/dL (8.5-10.1); CARBON DIOXIDE 23.9 mmol/L (21-32); CHLORIDE 104 mmol/L (98-107); COR CA(FOR HYPOALB) 9.4 mg/dL (8.5-10.1); CREATININE 0.73 mg/dL (0.55-1.02); GLUCOSE 96 mg/dL (65-99); SODIUM 136 mmol/L (136-145); TOTAL PROTEIN 4.9 g/dL (6.4-8.2); eGFR BLACK RACES > 60 (>60); eGFR NON BLACK RACES > 60 (>60)
[2016-10-02] MEDS ORDERED: LEXAPRO ONE (08:44)
[2016-10-02] MEDS ORDERED: ZESTRIL TAB 20 MG ONE (08:45)
[2016-10-02] MEDS: LEXAPRO PO SCH (09:45)
[2016-10-02] MEDS: K-DUR TAB 20 MEQ PO SCH (09:45)
[2016-10-02] MEDS: ZANTAC PO SCH ×2 (09:45→20:52)
[2016-10-02] MEDS: LOPRESSOR TAB 25 MG PO SCH ×2 (09:45→20:52)
[2016-10-02] MEDS: ZESTRIL TAB 20 MG PO SCH (09:45)
[2016-10-02] MEDS: ZYLOPRIM PO SCH ×2 (09:45→20:52)
[2016-10-02] MEDS: ASPIRIN EC 81 MG PO SCH (09:45)
[2016-10-02] MEDS: ALBUMIN HUMAN 25%- 100ML 100 ML IV SCH (09:46)
[2016-10-02] MEDS: TIMOPTIC 0.5% EYE DROPS EACHEYE SCH ×2 (09:46→20:52)
--- NOTE | 2016-10-02 18:48 | PCM.PROG ---
Progress Note - Progress Note for Day of Date: 10/02/16 - Subjective Subjective: PATIENT IS ALERT AND ORIENTED UPON ROUNDS. PATIENT CONTINUES TO REPORT WEAKNESS AND FATIGUE. BLOOD PRESSURE IS 95/51. PULSE IS 72. CBC WNL EXCEPT H/H 10.4/30.5. CMP WNL EXCEPT BUN 21, CALCIUM 8.2, TOTAL PROTEIN 4.9, ALBUMIN 2.5. WE WILL CONTINUE TO HOLD HCTZ, LASIX, CONTINUE IV FLUIDS, AND CONTINUE TO MONITOR. - Past Medical Family Social History Past Med/Fam/Surg Hx: No changes since H&P Allergies: Allergies Codeine Allergy (Unknown, Verified 09/29/16 12:43) Promethazine [From Phenergan] Allergy (Unknown, Verified 09/29/16 12:43) - Review of Systems ROS: No change since H&P - Vital Signs and I&O's Vital Signs: Temperature 97.5 F Pulse Rate [Right Brachial] 67 Pulse Rate [Left Radial] 61 Respiratory Rate 18 Blood Pressure [Left Arm] 103/57 Blood Pressure [Right Arm] 127/68 O2 Sat by Pulse Oximetry 97 Intake and Output: Intake & Output 09/30/16 10/01/16 10/02/16 10/03/16 11:59 11:59 11:59 11:59 Intake Total 899 1341 2640 600 Output Total 850 1300 700 Balance 292 940 9422 -100 - Physical Exam Oriented: Normal, Time, Person, Place Eyes: Normal. negative: Blurred Vision, Diplopia, Discharge, Pain, Redness, Photophobia Ear: Normal. negative: Swelling, Ecchymosis, Hemotypanum, Abrasion, Laceration Nose: Normal. negative: Injected, Discharge, Blood Throat: Dry. negative: Tonsillar Hypertrophy, Exudate Respiratory: Normal. negative: Wheezes, Rales, Rhonchi Cardiovascular: Normal. negative: Murmur, Edema : Normal. negative: Dysuria, Hematuria, Frequency, Discharge, Bleeding, Auscultation: Bowel Sounds: Decreased. negative: Bruit Palpation: Normal Tenderness: Normal. negative: Rebound, Guarding, Rigidity Skin: Decreased Turgur. negative: Diaphoresis, Wound, Bruising, Ecchymosis Musculoskeletal: Instability Psychiatric: Normal Mood Description: Calm, Appropriate Affect: Normal Speech Pattern: Clear, Appropriate - Laboratory and Diagnostics Result Diagrams: 10/02/16 04:15 05/07/17 04:15 Labs: Laboratory WBC 7.9 X10^3/uL (3.6-10.0) 10/02/16 04:15 RBC 3.12 X10^6/uL (3.5-5.4) L 10/02/16 04:15 Hgb 10.4 g/dL (12.0-16.0) L 10/02/16 04:15 Hct 30.5 % (36.0-47.0) L 10/02/16 04:15 MCV 97.8 fL (80.0-100.0) 10/02/16 04:15 MCH 33.4 pg (27.0-34.0) 10/02/16 04:15 MCHC 34.2 g/dL (33.0-35.0) 10/02/16 04:15 RDW 14.0 % (11.6-16.5) 10/02/16 04:15 Plt Count 195 X10^3/uL (150.0-450.0) 10/02/16 04:15 MPV 8.1 fL (7.4-11.0) 10/02/16 04:15 Neut % 66.0 % (42.0-75.0) 10/02/16 04:15 Lymph % 21.7 % (21.0-51.0) 10/02/16 04:15 [place] % 10.2 % (0.0-13.0) 10/02/16 04:15 Eos % 1.5 % (0.9-2.9) 10/02/16 04:15 Baso % 0.6 % (0.2-1.0) 10/02/16 04:15 Neut # 5.2 x10^3/uL (2.2-4.8) H 10/02/16 04:15 Lymph # 1.7 X10^3/uL (1.3-2.9) 10/02/16 04:15 [place] # 0.8 x10^3/uL (0.3-0.8) 10/02/16 04:15 Eos # 0.1 x10^3/uL (0.0-0.2) 10/02/16 04:15 Baso # 0.0 X10^3/uL (0.0-0.1) 10/02/16 04:15 Absolute Nucleated RBC 0.0 /100WBC 10/02/16 04:15 Sodium 136 mmol/L (136-145) 10/02/16 04:15 Corrected Sodium TNP 10/02/16 04:15 Potassium 4.5 mmol/L (3.5-5.1) 10/02/16 04:15 Chloride 104 mmol/L (98-107) 10/02/16 04:15 Carbon Dioxide 23.9 mmol/L (21-32) 10/02/16 04:15 BUN 21 mg/dL (7-18) H 10/02/16 04:15 Creatinine 0.73 mg/dL (0.55-1.02) 10/02/16 04:15 Est GFR (MDRD) Af Amer > 60 (>60) 10/02/16 04:15 Est GFR (MDRD) Non-Af > 60 (>60) 10/02/16 04:15 Glucose 96 mg/dL (65-99) 10/02/16 04:15 Calcium 8.2 mg/dL (8.5-10.1) L 10/02/16 04:15 Corrected Calcium 9.4 mg/dL (8.5-10.1) 10/02/16 04:15 Total Bilirubin 0.30 mg/dL (0.2-1.0) 10/02/16 04:15 AST 12 Units/L (15-37) L 10/02/16 04:15 ALT 20 Units/L (12-78) 10/02/16 04:15 Alkaline Phosphatase 48 Units/L (46-116) 10/02/16 04:15 Creatine Kinase 18 Units/L (26-192) L 09/30/16 01:45 CK-MB (CK-2) < 1.0 ng/mL (0-4.0) 09/30/16 01:45 CK/CKMB % Calc 5.6 % (<4) 09/30/16 01:45 Troponin I 0.02 ng/mL (0-1.5) 09/30/16 01:45 Total Protein 4.9 g/dL (6.4-8.2) L 10/02/16 04:15 Albumin 2.5 g/dL (3.4-5.0) L 10/02/16 04:15 Globulin 2.4 g/dL (2.5-4.5) L 10/02/16 04:15 Albumin/Globulin Ratio 1.0 Ratio (1.1-2.1) L 10/02/16 04:15 Specimen Type Clean catch urine 09/29/16 14:33 Urine Color Yellow (YELLOW) 09/29/16 14:33 Urine Appearance Clear (CLEAR) 09/29/16 14:33 Urine pH 6.5 (5.0 - 8.0) 09/29/16 14:33 Ur Specific [place] 1.010 (1.000-1.030) 09/29/16 14:33 Urine Protein Negative (NEGATIVE) 09/29/16 14:33 Urine Glucose (UA) Negative (NEGATIVE) 09/29/16 14:33 Urine Ketones Negative (NEGATIVE) 09/29/16 14:33 Urine Occult Blood Negative (NEGATIVE) 09/29/16 14:33 Urine Nitrite Negative (NEGATIVE) 09/29/16 14:33 Urine Bilirubin Negative (NEGATIVE) 09/29/16 14:33 Urine Urobilinogen Normal (NORMAL) 09/29/16 14:33 Ur Leukocyte Esterase 1+ (NEGATIVE) 09/29/16 14:33 Urine RBC 0-1 /HPF (NEGATIVE) 09/29/16 14:33 Urine WBC 0-2 /HPF (NEGATIVE) 09/29/16 14:33 Ur Squamous Epith Cells Moderate /HPF (NEGATIVE) 09/29/16 14:33 Urine Bacteria Trace /HPF (NEGATIVE) 09/29/16 14:33 Ur Culture Indicated? No/not indicated 09/29/16 14:33 - Plan (1) Hyponatremia Status: Acute Plan: CONTINUE IV FLUIDS, CONTINUE TO MONITOR VITAL SIGNS, MONITOR LABS. (2) Hypertension, uncontrolled Status: Acute Plan: CONTINUE LISINOPRIL, LOPRESSOR, MONITOR BLOOD PRESSURE. (3) HTN (hypertension) Status: Chronic Qualifiers: Hypertension type: essential hypertension Qualified Code(s): I10 - Essential (primary) hypertension (4) Hyperlipidemia Status: Chronic Qualifiers: Hyperlipidemia type: mixed hyperlipidemia Qualified Code(s): E78.2 - Mixed hyperlipidemia (5) GERD (gastroesophageal reflux disease) Status: Chronic Qualifiers: Esophagitis presence: esophagitis presence not specified Qualified Code(s) : K21.9 - Gastro-esophageal reflux disease without esophagitis (6) Osteoporosis Status: Chronic Qualifiers: Osteoporosis type: age-related Presence of current pathological fracture: without current pathological fracture Encounter type: E Fracture healing: F Qualified Code(s): M81.0 - Age-related osteoporosis without current pathological fracture (7) Anxiety and depression Status: Chronic
[2016-10-02] MEDS: LIPITOR TAB 10 MG PO SCH (20:52)
[2016-10-02] MEDS: RESTORIL CAP 15 MG PO PRN (20:52)
[2016-10-02] MEDS: PriLOSEC PO SCH (20:52)
[2016-10-03] MEDS: ULTRAM PO SCH (05:19)
[2016-10-03 05:54] LABS: BASOPHILS % (AUTO) 0.5 % (0.2-1.0); EOSINOPHILS # (AUTO) 0.2 x10^3/uL (0.0-0.2); EOSINOPHILS % (AUTO) 1.7 % (0.9-2.9); HEMATOCRIT 30.8 % (36.0-47.0); HEMOGLOBIN 10.5 g/dL (12.0-16.0); LYMPHOCYTES # (AUTO) 1.7 X10^3/uL (1.3-2.9); LYMPHOCYTES % (AUTO) 18.2 % (21.0-51.0); MEAN CORPUSCULAR HEMOGLOBIN 33.2 pg (27.0-34.0); MEAN CORPUSCULAR HGB CONC 33.9 g/dL (33.0-35.0); MONOCYTES # (AUTO) 0.9 x10^3/uL (0.3-0.8); MONOCYTES % (AUTO) 9.5 % (0.0-13.0); NEUTROPHILS # (AUTO) 6.3 x10^3/uL (2.2-4.8); NEUTROPHILS % (AUTO) 70.1 % (42.0-75.0); PLATELET COUNT 191 X10^3/uL (150.0-450.0); RED BLOOD COUNT 3.15 X10^6/uL (3.5-5.4); WHITE BLOOD COUNT 9.1 X10^3/uL (3.6-10.0)
[2016-10-03 06:04] LABS: ALANINE AMINOTRANSFERASE 23 Units/L (12-78); ALBUMIN 2.8 g/dL (3.4-5.0); ALKALINE PHOSPHATASE 45 Units/L (46-116); ASPARTATE AMINO TRANSFERASE 14 Units/L (15-37); BLOOD UREA NITROGEN 15 mg/dL (7-18); CALCIUM 8.1 mg/dL (8.5-10.1); CARBON DIOXIDE 25.9 mmol/L (21-32); CHLORIDE 105 mmol/L (98-107); COR CA(FOR HYPOALB) 9.1 mg/dL (8.5-10.1); CREATININE 0.74 mg/dL (0.55-1.02); GLUCOSE 91 mg/dL (65-99); SODIUM 137 mmol/L (136-145); TOTAL PROTEIN 5.2 g/dL (6.4-8.2); eGFR BLACK RACES > 60 (>60); eGFR NON BLACK RACES > 60 (>60)
[2016-10-03] MEDS ORDERED: LEXAPRO ONE (08:48)
[2016-10-03] MEDS ORDERED: ZESTRIL TAB 20 MG ONE (08:49)
[2016-10-03] MEDS: ALBUMIN HUMAN 25%- 100ML 100 ML IV SCH (10:19)
[2016-10-03] MEDS: LEXAPRO PO SCH (10:19)
[2016-10-03] MEDS: ZESTRIL TAB 20 MG PO SCH (10:20)
[2016-10-03] MEDS: ZYLOPRIM PO SCH (10:21)
[2016-10-03] MEDS: ASPIRIN EC 81 MG PO SCH (10:21)
[2016-10-03] MEDS: ZANTAC PO SCH (10:21)
[2016-10-03] MEDS: LOPRESSOR TAB 25 MG PO SCH (10:22)
[2016-10-03] MEDS: K-DUR TAB 20 MEQ PO SCH (10:22)
[2016-10-03] MEDS: TIMOPTIC 0.5% EYE DROPS EACHEYE SCH (10:23)
[2016-10-03] MEDS: NS 1000 ML 1,000 ML IV SCH (10:32)
[2016-10-03 12:06] VITALS: BP 98/59
== END 2016-10-03 13:15 | disposition home or self-care (01) | DRG 641 ==
LOC: ER 12:50 → MED/SURG 15:42
PROVIDERS: ADMIT Internal Medicine; ATTEND Internal Medicine
DX: E87.1 Hypo-osmolality and hyponatremia (principal); I10 Essential (primary) hypertension; R06.02 Shortness of breath; R07.82 Intercostal pain; E78.2 Mixed hyperlipidemia; K21.9 Gastro-esophageal reflux disease without esophagitis; R53.1 Weakness; R51 Headache; R53.83 Other fatigue; I51.7 Cardiomegaly; J44.9 Chronic obstructive pulmonary disease, unspecified; F41.8 Other specified anxiety disorders; M13.89 Other specified arthritis, multiple sites; M81.0 Age-related osteoporosis without current pathological fracture; F32.89 Other specified depressive episodes; R94.4 Abnormal results of kidney function studies
CPT/HCPCS: 36415; 71010; 80053; 81001; 82550; 82553; 84484; 85025; 93005; 93010; 94760; 96365; 96374; 97535; 99284; A4222; P9047

== ENCOUNTER 2016-10-09 12:28 | Emergency (ER) | payer OTHER, MEDICAID ==
[2016-10-09 12:36] VITALS: BMI 22.8
--- NOTE | 2016-10-09 13:11 | DR.GENAD ---
HPI - PCP Primary Care Physician: bandar - Complaint/Symptoms Chief Complaint Doctors Comments: Patient has an appointment to see Dr Cochran in the AM for blood pressure monitoring. Patient wants to be admitted for BP monitoring. Chief Complaint:: patient stated she took lisinopril 40 mg to lower her blood pressure. she was discharged 10/03/16 for high blood pressure and low sodium. - Source History Provided: Patient - Mode of Arrival Mode of Arrival: Ambulatory - Timing Onset of Chief Complaint: 10/08/16 PMH - PMH Past Medical History: Yes Past Medical History: Dyslipidemia, GERD, Gout, Hypertension Past Surgical History: Yes Surgical History: Ortho Surgery - Family History History of Family Medical Conditions: No Family Medical History: Coronary Artery Disease, Hypertension - Social History Does patient currently use any type of tobacco product: No Have you used tobacco products in the last 12 months: No Type of Tobacco Use: None Does any household member use tobacco: No Alcohol Use: None Do you use any recreational Drugs:: No Lives With: Family Lives Where: Home - infectious screening In the last 2 months have you had wt loss of >10#?: NO Have you had fever, night sweats or hemotysis?: No Have you traveled outside the country in the last 6 months?: No Isolation: Standard ROS - Review of Systems Eyes: No Symptoms Reported ENTM: No Symptoms Reported Respiratoy: No Symptoms Reported Cardiovascular: No Symptoms Reported Gastrointestinal/Abdominal: No Symptoms Reported Genitourinary: No Symptoms Reported Neurological: No Symptoms Reported Musculoskeletal: No Symptoms Reported Integumentary: No Symptoms Reported Hematologic/Lymphatic: No Symptoms Reported Endocrine: No Symptoms Reported Psychiatric: No Symptoms Reported All Other Systems: Reviewed and Negative PE - Vital Signs Vitals: Pulse Rate 83 Respiratory Rate 16 Blood Pressure [Left Arm] 98/59 Blood Pressure [Right Arm] 133/60 Blood Pressure 166/92 O2 Sat by Pulse Oximetry 100 - General Limitations: No Limitations General Appearance: Alert, In No Apparent Distress - Head Head Exam: Normal Inspection, Atraumatic - Eyes Eye exam: Normal Appearance, PERRL, EOMI - ENT ENT Exam: Normal Exam External Ear Exam: Normal External Inspection TM/Canal Exam: Bilateral Normal Nose Exam: Normal Nose Exam Mouth Exam: Normal Inspection Throat Exam: Normal Inspection - Neck Neck Exam: Normal Inspection - Chest Chest Inspection: Normal Inspection - Respiratory Respiratory Exam: Normal Lung Sounds Bilat Respiratory Exam: Bilateral Clear to Auscultation - Cardiovascular Cardiovascular Exam: Regular Rate, Normal Rhythm - Abdominal Exam Abdominal Exam: Normal Inspection, Normal Bowel Sounds Abdominal Tenderness: negative: RUQ, RLQ, LUQ, LLQ, Epigastrium, Suprapubic, Diffuse, Mild, Moderate, Severe, Other - Extremities Extremities Exam: Normal Inspection, Full ROM - Back Back Exam: Normal Inspection - Neurologic Neurological Exam: Alert, Oriented X3, CN II-XII Intact - Psychiatric Psychiatric Exam: Normal Affect - Skin Skin Exam: Warm, Dry, Intact Course - Treatment Treatment: BP 154/83 - Reevaluation 1st: Improved - Diagnosis Discharge Problem: Hypertension Qualifiers: Hypertension type: other secondary hypertension Qualified Code(s): I15.8 - Other secondary hypertension - Discharge Plan Condition: Stable - Follow ups/Referrals Follow ups/Referrals: Ezekiel Cochran [Primary Care Provider] - 3 days - Instructions
[2016-10-09 13:53] VITALS: BP 179/85
== END 2016-10-09 13:43 | disposition home or self-care (01) ==
LOC: ER 12:36
DX: I15.8 Other secondary hypertension (principal)
CPT/HCPCS: 99281; 99282

== ENCOUNTER 2017-05-31 09:11 | Emergency (ER) | payer OTHER, MEDICAID ==
[2017-05-31 09:24] VITALS: BMI 23.8
--- NOTE | 2017-05-31 09:33 | DR.GENAD ---
HPI - PCP Primary Care Physician: MARY - HPI Comment HPI Comment: FELL IN HER KITCHEN AND INJURED RT ANKLE. UNABLE TO PUT WEIGHT ON THE RLE. NO LOC. HAPPEN BEFORE COMING. - Complaint/Symptoms Chief Complaint Doctors Comments: FELL, INJURY RIGHT ANKLE. Chief Complaint:: PT C/O T ANKLE PAIN. PT STATES SHE SLIPPED IN THE KITCHEN AND HURT HER RT ANKLE. NOTED SWELLING - Nurses notes reviewed Nurses Notes Review: Yes - Source History Provided: Patient - Mode of Arrival Mode of Arrival: EMS - Timing Onset of Chief Complaint: 05/31/17 Came on: Suddenly - Duration Duration: Constant Duration: Hours - Severity Severity: Moderate PMH - PMH Past Medical History: Yes Past Medical History: Dyslipidemia, GERD, Gout, Hypertension Past Surgical History: Yes Surgical History: Ortho Surgery - Family History History of Family Medical Conditions: Yes Family Medical History: Coronary Artery Disease, Hypertension - Social History Does any household member use tobacco: No Alcohol Use: None Do you use any recreational Drugs:: No Lives With: Family Lives Where: Home - infectious screening In the last 2 months have you had wt loss of >10#?: NO Have you had fever, night sweats or hemotysis?: No Have you traveled outside the country in the last 6 months?: No Isolation: Standard ROS - Review of Systems Constitutional: No Symptoms Reported Eyes: No Symptoms Reported. negative: Eye Pain, Discharge ENTM: No Symptoms Reported. negative: Ear Pain, Nose Discharge, Nose Congestion , Throat Pain Respiratoy: No Symptoms Reported, Short of Breath (ON EXERTION). negative: Productive Cough, Wheezing, Hemoptysis Cardiovascular: No Symptoms Reported Gastrointestinal/Abdominal: No Symptoms Reported Genitourinary: No Symptoms Reported Neurological: No Symptoms Reported. negative: Headache, Dizziness Musculoskeletal: Right, Ankle Integumentary: Change in Color Hematologic/Lymphatic: No Symptoms Reported Endocrine: No Symptoms Reported All Other Systems: Reviewed and Negative PE - Vital Signs Vitals: Temperature 97.7 F Pulse Rate [Right Radial] 72 Pulse Rate 71 Respiratory Rate 17 Blood Pressure [Left Arm] 139/91 Blood Pressure [Right Arm] 133/60 Blood Pressure 180/81 O2 Sat by Pulse Oximetry 97 - General Limitations: No Limitations General Appearance: Alert - Head Head Exam: Normal Inspection - Eyes Eye exam: Normal Appearance - ENT ENT Exam: Normal External Ear Exam External Ear Exam: Normal External Inspection TM/Canal Exam: Bilateral Normal Nose Exam: Normal Nose Exam Mouth Exam: Normal Inspection Throat Exam: Normal Inspection - Neck Neck Exam: Trachea Midline - Chest Chest Inspection: Symmetric Chest Wall Rise - Respiratory Respiratory Exam: Normal Lung Sounds Bilat Respiratory Exam: Lower Rhonchi - Cardiovascular Cardiovascular Exam: Regular Rate, Normal Rhythm, Normal Heart Sounds - Abdominal Exam Abdominal Exam: Normal Bowel Sounds, Soft. negative: Tenderness - Extremities Extremities Exam: Tenderness (RT ANKLE SWOLLEN ACROSS THE ANKLE. PULSES INTACK. ROM DECREASE.) - Back Back Exam: Normal Inspection - Neurologic Neurological Exam: Alert, Oriented X3 - Psychiatric Psychiatric Exam: Normal Affect, Normal Mood - Skin Skin Exam: Normal Color MDM - Additional Information Additional Information Obtained From: Family - Differential Diagnosis Differential Diagnosis: ANKLE FRACTURE RT, ANKLE SPRAIN RT Course - Treatment Treatment: SEE ORDERS. - Consultation Consultation Comments: PATIENT DISCUSS WITH ORTHO/ DR BARTLETT. HOSPITALIST TO ADMIT. DR. FERRER WILL ADMIT PATIENT. - Education/Counseling Education/Counseling: Patient, Family, Education Educated On: Diagnosis ROR - Labs Reviewed Result Diagrams: 05/31/17 14:10 05/31/17 14:10 Laboratory: WBC 9.8 X10^3/uL (3.6-10.0) 05/31/17 14:10 RBC 4.25 X10^6/uL (3.5-5.4) 05/31/17 14:10 Hgb 13.7 g/dL (12.0-16.0) 05/31/17 14:10 Hct 40.0 % (36.0-47.0) 05/31/17 14:10 MCV 94.2 fL (80.0-100.0) 05/31/17 14:10 MCH 32.2 pg (27.0-34.0) 05/31/17 14:10 MCHC 34.2 g/dL (33.0-35.0) 05/31/17 14:10 RDW 12.8 % (11.6-16.5) 05/31/17 14:10 Plt Count 226 X10^3/uL (150.0-450.0) 05/31/17 14:10 MPV 8.0 fL (7.4-11.0) 05/31/17 14:10 Neut % 68.9 % (42.0-75.0) 05/31/17 14:10 Lymph % 19.5 % (21.0-51.0) L 05/31/17 14:10 [place] % 8.7 % (0.0-13.0) 05/31/17 14:10 Eos % 2.3 % (0.9-2.9) 05/31/17 14:10 Baso % 0.6 % (0.2-1.0) 05/31/17 14:10 Neut # 6.7 x10^3/uL (2.2-4.8) H 05/31/17 14:10 Lymph # 1.9 X10^3/uL (1.3-2.9) 05/31/17 14:10 [place] # 0.8 x10^3/uL (0.3-0.8) 05/31/17 14:10 Eos # 0.2 x10^3/uL (0.0-0.2) 05/31/17 14:10 Baso # 0.1 X10^3/uL (0.0-0.1) 05/31/17 14:10 Absolute Nucleated RBC 0.0 /100WBC 05/31/17 14:10 INR Target Range - 05/31/17 14:10 INR 0.99 (0.8-1.3) 05/31/17 14:10 PTT 28.1 SECONDS (22.9-36.5) 05/31/17 14:10 PTT Comment - 05/31/17 14:10 Sodium 139 mmol/L (136-145) 05/31/17 14:10 Corrected Sodium 139 mmol/L (136-145) 05/31/17 14:10 Potassium 3.9 mmol/L (3.5-5.1) 05/31/17 14:10 Chloride 104 mmol/L (98-107) 05/31/17 14:10 Carbon Dioxide 28.7 mmol/L (21-32) 05/31/17 14:10 BUN 13 mg/dL (7-18) 05/31/17 14:10 Creatinine 0.67 mg/dL (0.55-1.02) 05/31/17 14:10 Est GFR (MDRD) Af Amer > 60 (>60) 05/31/17 14:10 Est GFR (MDRD) Non-Af > 60 (>60) 05/31/17 14:10 Glucose 114 mg/dL (65-99) H 05/31/17 14:10 Calcium 8.8 mg/dL (8.5-10.1) 05/31/17 14:10 Corrected Calcium 9.4 mg/dL (8.5-10.1) 05/31/17 14:10 Total Bilirubin 0.50 mg/dL (0.2-1.0) 05/31/17 14:10 AST 15 Units/L (15-37) 05/31/17 14:10 ALT 17 Units/L (12-78) 05/31/17 14:10 Alkaline Phosphatase 77 Units/L (46-116) 05/31/17 14:10 Total Protein 6.4 g/dL (6.4-8.2) 05/31/17 14:10 Albumin 3.2 g/dL (3.4-5.0) L 05/31/17 14:10 Globulin 3.2 g/dL (2.5-4.5) 05/31/17 14:10 Albumin/Globulin Ratio 1.0 Ratio (1.1-2.1) L 05/31/17 14:10 - XRAY XRAY Findings: REPORT DISCUSS WITH PATIENT AND HER FAMILY. - EKG Rhythm: ST (EKG NOTED) - Diagnosis Discharge Problem: Ankle fracture, bimalleolar, closed Qualifiers: Encounter type: initial encounter Laterality: right Qualified Code(s): S82.841A - Displaced bimalleolar fracture of right lower leg, initial encounter for closed fracture Talar fracture Qualifiers: Encounter type: initial encounter Fracture type: closed Fracture morphology: unspecified fracture morphology Fracture alignment: displaced Laterality: right Qualified Code(s): S92.101A - Unspecified fracture of right talus, initial encounter for closed fracture - Discharge Plan Disposition: XFER [facility]M HOSP Condition: Stable - Follow ups/Referrals Follow ups/Referrals: Ezekiel Cochran [Primary Care Provider] - 3 days - Instructions
--- NOTE | 2017-05-31 10:01 | RAD ---
Examination: Right ankle, three views History: Fell Findings: There are acute displaced transverse fractures involving both lateral and medial malleolus. There may be a fracture of the posterior tibial malleolus, this is uncertain. There is marked auto dismantler ior displacement of the talus in relation to the tibia. There is suspicious appearance for a posterio r talar fracture. The subtalar joint appears preserved. Impression: Bimalleolar fracture-dislocation. Possible associated 3rd fracture involving the posterio r tibial malleolus. Suspect talar fracture. Reported By:
[2017-05-31] MEDS ORDERED: ZOFRAN INJ 4 MG VIAL IVP ONE (12:38)
[2017-05-31] MEDS ORDERED: MORPHINE SULFATE INJ 4 MG ONE (12:42)
[2017-05-31] MEDS ORDERED: ZOFRAN INJ 4 MG VIAL ONE (12:42)
[2017-05-31] MEDS: MORPHINE SULFATE INJ 4 MG IVP ONE ×2 (12:47→12:53)
[2017-05-31] MEDS ORDERED: CATAPRES TAB 0.1 MG PO ONE (12:49)
[2017-05-31] MEDS ORDERED: CATAPRES TAB 0.1 MG ONE (12:53)
[2017-05-31] MEDS ORDERED: NIFEDIPINE CAP 10 MG PO ONE (13:54)
[2017-05-31] MEDS ORDERED: NIFEDIPINE CAP 10 MG ONE (14:03)
--- NOTE | 2017-05-31 14:18 | RAD ---
And Examination: Portable AP chest History: Preop, hypertension and melanoma Comparison 09/29/2016 Findings: Continued normal heart size with clear lungs and pleural spaces. Large hiatal hernia. Bilat eral shoulder arthropathy. Impression: No change; no acute disease. Intrathoracic hiatal hernia. The Reported By:
[2017-05-31 14:20] LABS: BASOPHILS # (AUTO) 0.1 X10^3/uL (0.0-0.1); BASOPHILS % (AUTO) 0.6 % (0.2-1.0); EOSINOPHILS # (AUTO) 0.2 x10^3/uL (0.0-0.2); EOSINOPHILS % (AUTO) 2.3 % (0.9-2.9); HEMOGLOBIN 13.7 g/dL (12.0-16.0); LYMPHOCYTES # (AUTO) 1.9 X10^3/uL (1.3-2.9); LYMPHOCYTES % (AUTO) 19.5 % (21.0-51.0); MEAN CORPUSCULAR HEMOGLOBIN 32.2 pg (27.0-34.0); MEAN CORPUSCULAR HGB CONC 34.2 g/dL (33.0-35.0); MEAN CORPUSCULAR VOLUME 94.2 fL (80.0-100.0); MONOCYTES # (AUTO) 0.8 x10^3/uL (0.3-0.8); MONOCYTES % (AUTO) 8.7 % (0.0-13.0); NEUTROPHILS # (AUTO) 6.7 x10^3/uL (2.2-4.8); NEUTROPHILS % (AUTO) 68.9 % (42.0-75.0); PLATELET COUNT 226 X10^3/uL (150.0-450.0); RED BLOOD COUNT 4.25 X10^6/uL (3.5-5.4); RED CELL DISTRIBUTION WIDTH 12.8 % (11.6-16.5); WHITE BLOOD COUNT 9.8 X10^3/uL (3.6-10.0)
[2017-05-31 14:32] LABS: ALANINE AMINOTRANSFERASE 17 Units/L (12-78); ALBUMIN 3.2 g/dL (3.4-5.0); ALKALINE PHOSPHATASE 77 Units/L (46-116); ASPARTATE AMINO TRANSFERASE 15 Units/L (15-37); BLOOD UREA NITROGEN 13 mg/dL (7-18); CALCIUM 8.8 mg/dL (8.5-10.1); CARBON DIOXIDE 28.7 mmol/L (21-32); CHLORIDE 104 mmol/L (98-107); COR CA(FOR HYPOALB) 9.4 mg/dL (8.5-10.1); COR NA(FOR HYPERGLY) 139 mmol/L (136-145); CREATININE 0.67 mg/dL (0.55-1.02); SODIUM 139 mmol/L (136-145); TOTAL PROTEIN 6.4 g/dL (6.4-8.2); eGFR BLACK RACES > 60 (>60); eGFR NON BLACK RACES > 60 (>60)
[2017-05-31 15:33] VITALS: BP 139/91
== END 2017-05-31 15:46 | disposition short-term general hospital (02) ==
LOC: ER 09:38
DX: S82.841A Displaced bimalleolar fracture of right lower leg, initial encounter for closed fracture (principal); S92.101A Unspecified fracture of right talus, initial encounter for closed fracture; W19.XXXA Unspecified fall, initial encounter; Y92.89 Other specified places as the place of occurrence of the external cause
CPT/HCPCS: 29515; 36415; 71045; 73610; 80053; 85025; 85610; 85730; 93005; 93010; 96365; 99285; A4222; J2270; J2405

== ENCOUNTER → 2017-09-21 | Outpatient (CLI) | payer OTHER, MEDICAID ==
--- NOTE | 2017-09-22 06:18 | RAD ---
Examination: Right ankle, three views History: Fracture Comparison reference 05/31/2017 Findings: Subacute fractures of lateral and medial malleoli again noted. The original dislocation ho s been reduced. The tibiotalar joint is symmetric. There is persistent widening and displacement of m alleolar fracture sites. No definite talar fracture is seen. Healing is incomplete. There are surgica l defects noted in the posterior calcaneus and proximal metatarsals. Increasing osteopenia is noted a s expected. Impression: Interval reduction of original tibiotalar dislocation. Healing malleolar fractures with r esidual displacement especially involving the distal fibula. Reported By:
== END ==
LOC: RAD 14:42
PROVIDERS: ATTEND Internal Medicine
DX: S82.891A Other fracture of right lower leg, initial encounter for closed fracture (principal); X58.XXXA Exposure to other specified factors, initial encounter
CPT/HCPCS: 73610

== ENCOUNTER → 2017-10-12 | Outpatient (CLI) | payer OTHER, MEDICAID ==
--- NOTE | 2017-10-13 09:46 | MG ---
HISTORY: SCREENING Comparison: 12/01/2015 FINDINGS: Bilateral CC and MLO projections of the right and left breast were obtained. Scattered fibroglandula r tissue is seen to be present. No significant architectural distortion, mass or clustered microcalc ifications can be observed to suggest malignancy. No skin thickening or nipple retraction is appreci ated. No pathological lymphadenopathy can be identified. Benign-appearing calcifications scattered throughout the right and left breasts are observed. IMPRESSION: NO RADIOGRAPHIC EVIDENCE OF MALIGNANCY. ACR CATEGORY 2 - benign findings. FOLLOW-UP EXAM 1 YEAR. Diagnostic CAD was utilized and reviewed. * 0 (ZERO) - ASSESSMENT INCOMPLETE; ADDITIONAL IMAGING IS NEEDED. * 1/ (ONE) - NEGATIVE. * 2/II (TWO) - BENIGN FINDINGS. * 3/III (THREE) - PROBABLY BENIGN FINDING; SHORT INTERVAL FOLLOW-UP SUGGESTED. * 4/IV (FOUR) - SUSPICIOUS ABNORMALITY; BIOPSY SHOULD BE CONSIDERED. * 5/V - HIGHLY SUSPICIOUS OF MALIGNANCY; BIOPSY SHOULD BE PERFORMED. A NEGATIVE X-RAY REPORT SHOULD NOT DELAY BIOPSY IF A DOMINANT OR CLINICALLY SUSPICIOUS MASS IS PRESENT; 4 TO 8 PERCENT OF CANCERS ARE NOT IDENTIFIED BY X-RAY. A NEGA TIVE REPORT MAY REINFORCE THE CLINICAL IMPRESSION. ADENOSIS AND DENSE BREASTS MAY OBSCURE AN UNDERLY ING NEOPLASM. Reported By:
== END ==
LOC: RAD 11:53
PROVIDERS: ATTEND Internal Medicine
DX: Z12.31 Encounter for screening mammogram for malignant neoplasm of breast (principal)
CPT/HCPCS: 77067